=== PATIENT | female | born 1955 | race Caucasian/White ===

== ENCOUNTER 2017-03-13 23:50 | Observation (INO) | payer BC ==
--- NOTE | ~2017-03-13 | HP ---
History And Physical [place] [id number] [facility] [place]. [address] NAME: LUCINDA GOMEZ : 55 STATUS : ADM Donny PAT#: [id number] AGE: 61 ADM/REG DATE : 03/13/17 MR#: [id number] REPORT SERV DATE: 03/14/17 DICTATED BY: MEENA GARLAND DATE: 03/14/17 REPORT STATUS : Draft TRANSCRIBED BY: MODBear DATE: 03/14/17 DATE OF ADMISSION: 03/13/2017 CHIEF COMPLAINT: Atypical chest pain. HISTORY OF PRESENT ILLNESS: A very pleasant 61-year-old white female with no known history of CAD, states that she has had two days of atypical chest discomfort with a pleuritic component, and musculoskeletal. The chest pain is reproducible on exam along her posterior and anterior left chest. The patient states that on 03/13/2017 around 2300 hours, she experienced sharp stabbing chest pain worse with deep breath and with movement of her left shoulder. She describes associated shortness of breath. No nausea or diaphoresis, but also reports some dizziness and belching. She did try Tums with no improvement. She describes the left-sided chest pain as a stabbing discomfort from front to back, worse with movement and deep breath. At its most intense, she rates the chest pain an 8/10. At the time of interview in the [facility], she rates it a 2/10. She reports no change in activity. No exertional component. She walks one mile daily [place] incident. She did take aspirin prior to coming to the hospital, and reports a dinner of chicken salad, fruit, and tomatoes. The patient denies any personal history of myocardial infarction, stroke, DVT, or pulmonary embolus. The patient denies any recent fever or chills, no palpitations, no syncopal episodes. Denies PND or orthopnea. Of note, the patient's concern was for a mother and maternal grandmother both of whom in their mid 70s from heart attacks with reportedly normal lab work and EKGs during their workup, given her maternal family history, she was she felt it prudent to come to the emergency room, and have further evaluation and treatment. PAST MEDICAL HISTORY: 1. Reflex sympathetic dystrophy in knees from a fall. 2. Denies hypertension, dyslipidemia, or diabetes. 3. Positive family history for early CAD. PAST SURGICAL HISTORY: 1. Multiple surgeries on both knees with including a left total knee and four subsequent surgeries and a right arthroscopic knee surgery. 2. Cataract repair. SOCIAL HISTORY: She is with two children. She is retired from the post [employer]. She gardens several hours daily, and walks one mile daily without incident. Denies tobacco, alcohol, or illicits. FAMILY HISTORY: Mother at the age of 76 of a heart attack. Maternal grandmother at 75 of a heart attack. Father in his 20s from a drowning accident. Brother with a heart attack at 42. Remains alive at 53. Total of three heart attacks. History And Physical [address] [address] NAME: LUCINDA GOMEZ : 55 STATUS : ADM Donny PAT#: [id number] AGE: 61 ADM/REG DATE : 03/13/17 MR#: [id number] REPORT SERV DATE: 03/14/17 DICTATED BY: MEENA GARLAND DATE: 03/14/17 REPORT STATUS : Draft TRANSCRIBED BY: ELSA DATE: 03/14/17 REVIEW OF SYSTEMS: A 14-point review of systems was performed, significant for HPI. No other contributory diagnoses identified. ALLERGIES: NO KNOWN DRUG ALLERGIES. HOME MEDICATIONS: Vitamin D p.r.n. PHYSICAL EXAMINATION: BLOOD PRESSURE: Bilateral blood pressures on arrival, right 120/56, left 107/59. PULSE: 67, RESPIRATORY RATE: 18, TEMPERATURE: 98.4, O2 saturation 96% on room air. HEIGHT: 5 feet 5 inches, WEIGHT: 160 pounds. BMI of 27. GENERAL: Cooperative, in no apparent distress. HEENT: Pupils 2 mm, sclera nonicteric. Nares patent. Moist mucous membranes. No xanthelasma. NECK: Trachea midline, no thyromegaly. No JVD. No bruits. LYMPH: No cervical lymphadenopathy. No supraclavicular lymphadenopathy. CHEST: Tender to palpation, posterior and anterior left chest eliciting a wince and withdrawal on exam. CARDIOVASCULAR: Regular rate. No murmur, rub or gallop appreciated. EXTREMITIES: Without edema. Pulses 2+ bilaterally. ABDOMEN: Soft, nontender, nondistended, normal bowel sounds auscultated throughout. No organomegaly. SKIN: Warm, dry extremities. No pallor, or cyanosis. PSYCHIATRIC: Appropriate affect. Alert, oriented x3. LABORATORY DATA: Troponin less than 0.02 x3. Potassium 3.8, BUN 18, creatinine 0.84, glucose 96, and magnesium 2.2. WBC 9.1, hemoglobin 14.4, hematocrit 43.4, and platelet count 171,000. EKG; sinus rhythm. CTA of the chest: No PE. Coronaries clear. No abnormality of the ascending or descending thoracic aorta. ASSESSMENT AND PLAN: 1. Atypical chest pain. The patient has been observed in the CPOU overnight to rule out myocardial infarction with serial enzymes and serial EKGs, and held n.p.o. We will proceed with MPI today. The patient will be discharged home if low risk, no ischemia to follow up with the PCP in one to two weeks. If anything suggestive of ischemia, Cardiology referral will be initiated. Of note, a CTA of the chest addresses coronaries as "clear.". 2. Unknown cholesterol status. Check a fasting lipid panel on blood in lab. JOSEFA/ELSA Meena Garland, JONATHAN, SPECIMEN COLLECTOR-BC History And Physical [address] [address] NAME: LUCINDA GOMEZ : 55 STATUS : ADM Donny PAT#: [id number] AGE: 61 ADM/REG DATE : 03/13/17 MR#: [id number] REPORT SERV DATE: 03/14/17 DICTATED BY: MEENA GARLAND DATE: 03/14/17 REPORT STATUS : Draft TRANSCRIBED BY: MODL DATE: 03/14/17 / [id number] CC: JONATHAN Ladd, SPECIMEN COLLECTOR-BC Cathy Castro NP
[2017-03-14 00:37] LABS: BASOPHILS 0.3 %; BASOPHILS ABSOLUTE 0.03 10/3/uL (0.0-0.16); EOSINOPHILS 2.4 %; EOSINOPHILS ABSOLUTE 0.22 10/3/uL (0.0-0.53); ER CBC TAT 0 Hrs 00 Mins; HEMATOCRIT 43.4 % (36.0-48.0); HEMOGLOBIN 14.4 g/dL (12.0-16.0); IMMATURE GRANULOCYTES 0.2 %; IMMATURE GRANULOCYTES ABSOLUTE 0.02 10/3/uL (0.0-0.11); LYMPHOCYTES 26.9 %; LYMPHOCYTES ABSOLUTE 2.45 10/3/uL (0.67-4.30); MEAN CORPUS HGB CONC 33.2 g/dL (32.0-36.0); MEAN CORPUSCULAR HEMOGLOB 29.3 pg (26.0-34.0); MEAN CORPUSCULAR VOLUME 88.4 fL (80-100); MEAN PLATELET VOLUME 11.6 fL (9.2-13.0); MONOCYTES ABSOLUTE 0.73 10/3/uL (0.21-1.20); NEUTROPHILS 62.2 %; NEUTROPHILS ABSOLUTE 5.66 10/3/uL (2.02-8.40); PLATELET COUNT 171 10/3/uL (150-400); RBC DISTRIBUTION WIDTH 13.8 % (12.0-16.0); RED CELL COUNT 4.91 10/6/uL (4.0-5.6)
[2017-03-14 00:40] LABS: MANUAL DIFF NO %; WHITE BLOOD CELLS 9.1 10/3/uL (4.5-10.5)
[2017-03-14 00:45] LABS: INTERNATIONAL NORMAL RATI 1.1 UNITS (-); PARTIAL THROMBO TIME 28.9 SEC (22.5-37.2)
[2017-03-14 00:46] LABS: PROTIME (NOT ORD) 13.7 SEC (12.0-14.5)
[2017-03-14 00:53] LABS: CALCIUM, SERUM 8.7 MG/DL (8.5-10.4); CHEST PAIN PROFILE TAT 0 Hrs 00 Mins; CHLORIDE, SERUM 107 MMOL/L (96-112); CO2 (CARBON DIOXIDE) 30 MMOL/L (24-34); CREATININE 0.84 MG/DL (0.55-1.02); GFR AFRICAN AMERICAN 87 ML/MIN (>=60); GFR NON AFRICAN AMERICAN 75 ML/MIN (>=60); GLUCOSE, SERUM 96 MG/DL (60-99); TROPONIN I <0.02 NG/ML (<0.05)
[2017-03-14 00:54] LABS: SODIUM, SERUM 143 MMOL/L (135-148)
[2017-03-14 00:55] LABS: BUN (BLOOD UREA NITROGEN) 18 MG/DL (6-23); POTASSIUM, SERUM 3.8 MMOL/L (3.5-5.3)
[2017-03-14] MEDS ORDERED: ASABAYER PO (02:20)
[2017-03-14 07:36] LABS: TROPONIN I <0.02 NG/ML (<0.05)
[2017-03-14 10:22] LABS: CHOL/HDL RATIO(NOT ORDER) 3.3 (0-5); CHOLESTEROL 179 MG/DL (< 200); HDL CHOLESTEROL 54 MG/DL (> 49); LDL CHOLESTEROL 110 MG/DL (< 130); NON-HDL CHOLESTEROL 125 MG/DL (< 160); TRIGLYCERIDE 78 MG/DL (< 150)
== END 2017-03-14 14:15 | disposition home or self-care (01) ==
LOC: ER 23:50 → CDU1 23:59 → CDU2 03-14 02:15
PROVIDERS: Clinical Nurse Specialist; Emergency Medicine
DX: R07.89 Other chest pain (principal); Z82.49 Family history of ischemic heart disease and other diseases of the circulatory system; Z98.890 Other specified postprocedural states; Z96.652 Presence of left artificial knee joint
CPT/HCPCS: 71275; 78452; 80048; 80061; 83735; 84484; 85025; 85610; 85730; 93005; 93017; 99285; A9270-GY; A9502; G0378; Q9967